=== PATIENT | male | born 1980 | race Caucasian/White ===

== ENCOUNTER 2016-11-15 13:59 | Emergency (ER) | payer SELFPAY ==
--- NOTE | 2016-11-15 14:25 | EDM.PDOC ---
ED HPI GENERAL MEDICAL PROBLEM - General Chief Complaint: General Stated Complaint: PT NEEDS MED Time Seen by Provider: 11/15/16 14:15 Source of Information: Reports: Patient History Limitations: Reports: No Limitations - History of Present Illness INITIAL COMMENTS - FREE TEXT/NARRATIVE: HISTORY AND PHYSICAL: History of present illness: Patient presents to the emergency room today with complaints of being out of his Xanax for the past 4 days, is here to request a refill. Patient reports he is from [place] his primary doctor is Dr. Butler, has been in [place] working for the past 3 years. He travels to and from [place] for his healthcare needs. Currently he takes Xanax 1 mg 3 times a day and Suboxone daily. Reports he filled his prescription for Xanax last on September 03, 2016 and has not had any medication in 4 days. States he feels hot and cold flashes, anxious, and slightly nauseated. Patient reports has Suboxone for approximately 1 year for past history of opioid abuse. Reports he has a couple tabs left and has a prescription waiting for him to be filled on Wednesday. Review of systems: As per history of present illness and below otherwise all systems reviewed and negative. Past medical history: As per history of present illness and as reviewed below otherwise noncontributory. Surgical history: As per history of present illness and as reviewed below otherwise noncontributory. Social history: No reported history of drug or alcohol abuse. Family history: As per history of present illness and as reviewed below otherwise noncontributory. Physical exam: Gen.: Nontoxic appearing 36-year-old male. Able to speak in full sentences without shortness of breath. Alert and oriented HEENT: Atraumatic, normocephalic, pupils reactive, negative for conjunctival pallor or scleral icterus, mucous membranes moist, throat clear, neck supple, nontender, trachea midline. Lungs: Clear to auscultation, breath sounds equal bilaterally, chest nontender. Heart: S1S2, regular rate and rhythm. Abdomen: Soft, nondistended, nontender. Pelvis: Stable nontender. Genitourinary: Deferred. Rectal: Deferred. Extremities: Atraumatic, negative for cords or calf pain. Neurovascular unremarkable. Neuro: Awake, alert, oriented. Cranial nerves II through XII unremarkable. Cerebellum unremarkable. Motor and sensory unremarkable throughout. Exam nonfocal. Diagnostics: [] Therapeutics: [] Impression: Medication refill, anxiety Plan: 1. Refilled Xanax 1 mg to get patient through until Wednesday when he can talk to his primary care provider. Prescription was written for 6 tablets (no refills). In-depth conversation about establishing care in [place] if he plans to be working here. He will need to follow-up with a primary care provider to further refill his Xanax and Suboxone. Patient voices understanding and is agreeable to plan of care. 2. Follow-up in the ED as needed as discussed. Definitive disposition and diagnosis as appropriate pending reevaluation and review of above. Onset: Other (4 days) Duration: Day(s): (For) Location: Reports: Generalized ED ROS GENERAL - Review of Systems Review Of Systems: ROS reveals no pertinent complaints other than HPI. ED EXAM, GENERAL - Physical Exam Exam: See Below (See dictation) Departure - Departure Time of Disposition: 14:26 Disposition: Home, Self-Care 01 Condition: Good Clinical Impression: Encounter for medication refill, Anxiety - Discharge Information Referrals: PCP,None [Primary Care Provider] - Additional Instructions: The following information is given to patients seen in the emergency department who are being discharged to home. This information is to outline your options for follow-up care. We provide all patients seen in our emergency department with a follow-up referral. The need for follow-up, as well as the timing and circumstances, are variable depending upon the specifics of your emergency department visit. If you don't have a primary care physician on staff, we will provide you with a referral. We always advise you to contact your personal physician following an emergency department visit to inform them of the circumstance of the visit and for follow-up with them and/or the need for any referrals to a consulting specialist. The emergency department will also refer you to a specialist when appropriate. This referral assures that you have the opportunity for followup care with a specialist. All of these measure are taken in an effort to provide you with optimal care, which includes your followup. Under all circumstances we always encourage you to contact your private physician who remains a resource for coordinating your care. When calling for followup care, please make the office aware that this follow-up is from your recent emergency room visit. If for any reason you are refused follow-up, please contact the [facility] emergency department at and ask to speak to the emergency department charge nurse. [facility] Primary care- Internal Medicine and Family [place] [id number] [place] [id number] Plan: 1. Refilled Xanax 1 mg to get patient through until Wednesday when he can talk to his primary care provider. Prescription was written for 6 tablets (no refills). In-depth conversation about establishing care in [place] if he plans to be working here. He will need to follow-up with a primary care provider to further refill his Xanax and Suboxone. Patient voices understanding and is agreeable to plan of care. 2. Follow-up in the ED as needed as discussed.
[2016-11-15 14:49] VITALS: BP 148/82
== END 2016-11-15 14:40 | disposition home or self-care (01) ==
LOC: MW.ED 13:59
DX: Z76.0 Encounter for issue of repeat prescription (principal); F41.9 Anxiety disorder, unspecified
CPT/HCPCS: 99282; 99283